=== PATIENT | female | born 1945 | race Caucasian/White ===

== ENCOUNTER 2024-01-24 19:49 | Emergency (ER) | payer MEDICARE, SELFPAY ==
[2024-01-24 19:49] VITALS: BMI 25.6
[2024-01-24 19:52] VITALS: BP 149/80
[2024-01-24 20:11] LABS: % Basophils 0.8 % (0-2); % Eosinophils 1.9 % (0-6); % Immature Granulocytes 0.5 % (0-0.5); % Monocytes 7.7 % (1.7-9.3); % Neutrophils 71.1 % (42.2-75.2); Absolute Basophils 0.1 10^3/uL (0-0.2); Absolute Eosinophils 0.1 10^3/uL (0-0.7); Absolute Lymphocytes 1.4 10^3/uL (1.2-3.4); Absolute Monocytes 0.6 10^3/uL (0.1-0.6); Absolute Neutrophils 5.4 10^3/uL (1.4-6.5); Hemoglobin 12.8 g/dL (12.0-16.0); Mean Corp Hgb Conc. 34.6 g/dL (33.0-37.0); Mean Corpuscular Hgb 30.3 pg (27.0-31.0); Mean Corpuscular Volume 87.5 fL (81.0-99.0); Mean Platelet Volume 9.7 fL (7.4-10.4); Nucleated Red Blood Cells % 0 %; Platelet Count 209 10^3/uL (130-400); Red Blood Cell Count 4.23 10^6/uL (4.20-5.40); Red Cell Dist. Width 12.4 % (11.5-14.5); White Blood Cell Count 7.5 10^3/uL (4.8-10.8)
[2024-01-24 20:34] LABS: Troponin I < 0.012 ng/ml
[2024-01-24 20:36] LABS: ALT (SGPT) 19 U/L (0-35); AST (SGOT) 23 U/L (14-36); Albumin 4.7 g/dl (3.5-5.0); Alkaline Phosphatase 116 U/L (38-126); Blood Urea Nitrogen 16 mg/dl (7-17); Calcium 9.8 mg/dl (8.4-10.2); Carbon Dioxide 25 mmol/L (22-30); Chloride 99 mmol/L (98-107); Glucose 257 mg/dl (70-99); Potassium 3.8 mmol/L (3.5-5.1); Sodium 135 mmol/L (135-145); Total Bilirubin 0.4 mg/dl (0.2-1.3); Total Protein 7.1 g/dl (6.3-8.2); eGFR > 60.00
--- NOTE | 2024-01-24 21:05 | ED.GENMED ---
History of Present Illness
General
Chief Complaint: Chest Pain
Time Seen by Provider: 01/24/24 20:54
History of Present Illness
History of Present Illness:
HPI: The patient presents with 2 to 3-day history of intermittent chest discomfort. She describes the symptoms as a pressure. She has a history of diabetes and high blood pressure. She inconsistently has this past week. She had no diaphoresis
nor shortness of breath. She also had some discomfort above the left elbow.
EXAM:
GENERAL: Well appearing in no distress
HEENT: Moist oral mucosa
CARDIOVASCULAR: No murmurs, normal heart rate, regular rhythm, No chest wall tenderness
PULMONARY: No respiratory distress, breath sounds are clear and equal
ABDOMEN: Soft with no peritoneal signs, no tenderness
NEUROLOGIC: Excellent strength all extremities, no coordination deficits
PSYCHIATRIC: Appropriate mental status, normal insight and judgement
EXTREMITIES: Nontender, no edema with exception of lymphedema noted of the right upper extremity and splinting also noted, moves all extremities equally
SKIN: No rash, no lesions
TIME OF INITIAL ENCOUNTER: 8 PM
NUMBER AND COMPLEXITY OF PROBLEMS ADDRESSED AT THE ENCOUNTER
� Chronic conditions affecting care: Diabetes, high blood pressure
� Acute Exacerbation and/or Progression of Chronic Illness: This is an acute problem
� Differential Diagnosis includes: Noncardiac chest pain, anxiety, ACS
AMOUNT AND/OR COMPLEXITY OF DATA TO BE REVIEWED AND ANALYZED
� I performed an independent evaluation of and my interpretation is:
EKG: Sinus 96, right bundle branch block with associated ST changes, no old to compare
CT:
X-rays:
Laboratory Studies: CBC normal, chemistries are unremarkable except glucose of 257, troponin less than 0.012
Other:
� Review of other/old records: I reviewed echo from August 2022 that showed normal LV function and indeterminate diastolic function
� Clinical information was obtained by an independent historian: I spoke to family at bedside
� Prescriptions/Medications Considered but not given:
� Further testing considered but not performed:
RISK OF COMPLICATIONS AND/OR MORBIDITY OR MORTALITY OF PATIENT MANAGEMENT
� Social determinants of health affecting care: Lives at home
� Discussion with other providers: Discussed case with Dr. Smith
� Escalation of care including admission/observation vs risk of discharge considered: Second troponin slightly higher than the first but still within normal range. Her symptoms have been ongoing intermittently for a week now.
Recommend close outpatient follow-up with cardiology.
Phy Exam
Physical Exam
Physical Exam:
See HPI
Scores
Heart Score for Chest Pain Patients
STEMI patient?: Not applicable
Course
Orders/Labs/Results
Orders:
Orders
01/24/24 19:51
Electrocardiogram (*1) Urgent
Reason for Study: Chest Pain
EKG- Treatment ONCE
01/24/24 20:04
Complete Blood Count/With Diff Urgent
Comprehensive Metabolic Panel Urgent
Troponin I Urgent
01/24/24 22:08
Troponin I Urgent
Abnormal Lab Results
01/24/24
20:04
Lymphocytes % 18.0 L %
(20.5-51.1)
Glucose 257 H mg/dl
(70-99)
01/24/24 20:04
01/24/24 20:04
Vital Signs
Initial and Last Documented VS:
Initial Vital Signs
Temp Pulse Resp BP Pulse Ox
98.6 F 91 16 149/80 100
01/24/24 19:52 01/24/24 19:52 01/24/24 19:52 01/24/24 19:52 01/24/24 19:52
Last Documented Vital Signs
Temp Pulse Resp BP Pulse Ox
98.6 F 87 15 149/80 97
01/24/24 19:52 01/24/24 21:45 01/24/24 21:45 01/24/24 19:52 01/24/24 21:45
*Critical Care Note
Total Time (30-74mins, 75-104mins- exclusive of procedures): Not Applicable
ED Attending Note
-
Portions of this chart may have been created with voice recognition software.� Occasional wrong word or��sound alike� substitutions may have occurred due to the inherent limitations of voice recognition software.
Discharge Plan
Departure
Patient Disposition: Home (Routine Discharge)
Date of Disposition: 01/24/24
Time of Disposition: 22:51
Patient with high blood pressure during this ER visit?: Yes
Discharge Problem:
Chest pain
Instructions: Chest Pain DCA Follow Up
Prescriptions:
No Action
oxycodone-acetaminophen 1 EACH tablet
1 ea PO Q4HPRN PRN (Reason: pain ) Qty: 12 0RF
cephalexin 500 mg capsule
500 mg PO TID Qty: 21 0RF
Referrals:
Jaquan Smith MD [Active] - Follow up in 2-3 days
Activity Restrictions/Additional Instructions:
I recommend that you follow-up with cardiology. Somebody from their office should be calling you to arrange close follow-up. If you do not hear from them, call their office to arrange close follow-up.
Interventions
Interventions:
*Risk Screen - Suicide Last Done: 01/24/24 19:52
*General Assessment Last Done: 01/24/24 22:00
*Neglect/Abuse Screening Last Done: 01/24/24 19:52
ED- Fall Risk Assessment Last Done: 01/24/24 22:02
*ED COVID-19 Vaccine History Last Done: 01/24/24 22:00
ED- Cardiac Assessment Last Done: 01/24/24 22:00
Discharge Date and Time
Print Language: ICELANDIC
[2024-01-24 22:00] VITALS: BP 128/63
[2024-01-24 22:38] LABS: Troponin I 0.019 ng/ml
[2024-01-24 23:05] VITALS: BP 133/62
== END 2024-01-24 23:31 | disposition home or self-care (01) ==
LOC: EMR 19:49
PROVIDERS: Emergency Medicine; EMERGENCY PHYSICIAN Emergency Medicine; FAMILY PHYSICIAN Nurse Practitioner Family
DX: R07.89 Other chest pain (principal); M79.602 Pain in left arm; E11.9 Type 2 diabetes mellitus without complications; I89.0 Lymphedema, not elsewhere classified; I10 Essential (primary) hypertension; Z88.8 Allergy status to other drugs, medicaments and biological substances; I45.10 Unspecified right bundle-branch block
CPT/HCPCS: 99283; 80053; 84484; 85025; 93005

== ENCOUNTER → 2024-02-07 08:25 | Outpatient (REF) | payer MEDICARE, SELFPAY | LOC: DHCBC/DCA 08:25 | PROVIDERS: ATTENDING PHYSICIAN Internal Medicine Cardiovascular Disease; FAMILY PHYSICIAN Nurse Practitioner Family | DX: R07.89 Other chest pain (principal) | CPT/HCPCS: 78452; 93017; A9500; J2785 ==

== ENCOUNTER → 2024-02-13 13:56 | Outpatient (REF) | payer MEDICARE, SELFPAY | LOC: RCS 13:56 | PROVIDERS: ATTENDING PHYSICIAN Internal Medicine Cardiovascular Disease; FAMILY PHYSICIAN Nurse Practitioner Family | DX: R07.89 Other chest pain (principal) | CPT/HCPCS: 93306 ==

== ENCOUNTER → 2024-07-04 14:18 | Outpatient (REF) | payer MEDICARE, SELFPAY | LOC: RAD 14:18 | PROVIDERS: ATTENDING PHYSICIAN Internal Medicine Cardiovascular Disease; FAMILY PHYSICIAN Nurse Practitioner Family | DX: R07.89 Other chest pain (principal); R42 Dizziness and giddiness; G83.21 Monoplegia of upper limb affecting right dominant side | CPT/HCPCS: 93880 ==

== ENCOUNTER → 2024-10-17 12:40 | Outpatient (REF) | payer MEDICARE, SELFPAY | LOC: WOUND 12:40 | PROVIDERS: ATTENDING PHYSICIAN Surgery; FAMILY PHYSICIAN Nurse Practitioner Family | DX: M24.541 Contracture, right hand (principal); I89.0 Lymphedema, not elsewhere classified; Z85.3 Personal history of malignant neoplasm of breast; Z92.3 Personal history of irradiation | CPT/HCPCS: 99203 ==

== ENCOUNTER → 2025-02-03 12:42 | Outpatient (REF) | payer MEDICARE, SELFPAY | LOC: MRI 3T 12:42 | PROVIDERS: ATTENDING PHYSICIAN Surgery; FAMILY PHYSICIAN Nurse Practitioner Family | DX: C50.919 Malignant neoplasm of unspecified site of unspecified female breast (principal) | CPT/HCPCS: 77049; A9585 ==

== ENCOUNTER → 2025-03-06 12:11 | Outpatient (REF) | payer MEDICARE, SELFPAY ==
[2025-03-06 12:24] LABS: Glucose 192 mg/dl (70-99)
== END ==
LOC: PET 12:11
PROVIDERS: ATTENDING PHYSICIAN Surgery
DX: C50.112 Malignant neoplasm of central portion of left female breast (principal); R92.8 Other abnormal and inconclusive findings on diagnostic imaging of breast
CPT/HCPCS: 36415; 82947